=== PATIENT | male | born 1975 | race African-American/Black ===

== ENCOUNTER 2017-05-26 20:05 | Emergency (ER) | payer OTHER ==
[~2017-05-26] VITALS: Ht 188 cm; Wt 102.0 kg
[2017-05-26] MEDS ORDERED: FISH100049 PO (20:23)
[2017-05-26] MEDS ORDERED: PRAV10TA4 PO (20:23)
[2017-05-26] MEDS ORDERED: PROZ20CA11 PO (20:23)
[2017-05-27] MEDS ORDERED: NAPROXEN 250 MG TAB PO ONE
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
[2017-05-27] MEDS ORDERED: CYCL10TA PO (00:26)
[2017-05-27] MEDS ORDERED: NAPR500T PO (00:26)
[2017-05-27 00:32] VITALS: BP 126/87
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
== END 2017-05-27 00:33 | disposition home or self-care (01) ==
LOC: M ED 20:05
DX: Z04.1 Encounter for examination and observation following transport accident (principal); S16.1XXA Strain of muscle, fascia and tendon at neck level, initial encounter; V49.40XA Driver injured in collision with unspecified motor vehicles in traffic accident, initial encounter; Y92.410 Unspecified street and highway as the place of occurrence of the external cause; Y93.89 Activity, other specified; Y99.8 Other external cause status; F33.9 Major depressive disorder, recurrent, unspecified; E78.00 Pure hypercholesterolemia, unspecified; Z79.899 Other long term (current) drug therapy